=== PATIENT | female | born 1980 | race Two or more races ===

== ENCOUNTER 2020-05-02 07:07 | Inpatient (IN) ==
[2020-05-02] MEDS ORDERED: ONDANSETRON 4 MG/2 ML VIAL IV PRN ×3 (08:06→17:07)
[2020-05-02] MEDS ORDERED: OXYTOCIN/LR 20 UNIT/1,000 ML BAG IV SCH (08:30)
[2020-05-02] MEDS ORDERED: LACTATED RINGERS 1,000 ML IV SCH ×2 (08:30→17:30)
[2020-05-02 08:43] LABS: Basophils # 0.1 10*3/uL (0.0-0.2); Basophils % 0.5 % (0.0-0.8); Eosinophils # 0.1 10*3/uL (0.0-0.87); Eosinophils % 0.6 % (0.00-10.9); Hemoglobin 11.7 GM/DL (12.0-16.0); Immature Granulocytes % 0.4 %; Immature Granulocytes Absolute 0.04 #; Lymphocytes # 3.8 10*3/uL (1.4-4.0); Lymphocytes % 34.2 % (21.3-54.2); Mean Corpuscular HGB Conc 32.5 GM/DL (32-36); Mean Corpuscular Volume 83.5 FL (87-102); Mean Platelet Volume 11.5 FL (9.6-12.0); Monocytes % 5.6 % (1.7-12.7); Neutrophils % 58.7 % (38.7-73.9); Platelet Count 247 T/CUMM (130-400); Red Blood Count 4.31 MC/CUMM (3.8-5.5); Red Cell Distribution Width 15.8 % (9.3-17.3)
[2020-05-02 09:05] LABS: Alanine Aminotransferase 20 U/L (13-56); Albumin 2.8 G/DL (3.4-5.0); Alkaline Phosphatase 268 U/L (45-117); Aspartate Amino Transferase 24 U/L (0-37); Bilirubin,Total < 0.39 MG/DL (0.2-1.0); Blood Urea Nitrogen 10 MG/DL (7-18); Calcium 9.1 MG/DL (8.5-10.1); Estimated Glom Filtration Rate 111 ML/MIN; Glucose 73 MG/DL (74-106); Total Protein 7.9 G/DL (6.4-8.3)
[2020-05-02 10:47] LABS: HIV Antigen/Antibody Result Nonreactive (Nonreactive)
[2020-05-02] MEDS ORDERED: ePHEDrine 50 MG/ML VIAL IV PRN (12:00)
[2020-05-02] MEDS ORDERED: hydrOXYzine HCL 25 MG/1 ML VIAL IM PRN (12:00)
[2020-05-02] MEDS ORDERED: CITRIC ACID/SODIUM CITRATE 30 ML UDCUP PO ONE (12:00)
[2020-05-02] MEDS ORDERED: diphenhydrAMINE 50 MG/1 ML VIAL IV PRN ×2 (12:00)
[2020-05-02] MEDS ORDERED: FAMOTIDINE 20 MG/2 ML VIAL IV ONE (12:00)
[2020-05-02] MEDS ORDERED: fentaNYL 2 MCG/ROPIV 0.2% EPID 100 ML EPIDURAL SCH (12:00)
[2020-05-02] MEDS ORDERED: PROMETHAZINE 25 MG/1 ML VIAL IM PRN (12:00)
[2020-05-02] MEDS ORDERED: NALOXONE 0.4 MG/ML VIAL IV PRN (12:00)
[2020-05-02] MEDS ORDERED: miSOPROStoL 200 MCG TABLET ONE (12:13)
[2020-05-02] MEDS ORDERED: METHYLERGONOVINE 0.2 MG/1 ML AMP ONE (12:13)
[2020-05-02] MEDS ORDERED: CARBOPROST TROMETHAMINE 250 MCG/ML AMP IM ONE (12:13)
[2020-05-02] MEDS ORDERED: LIDOCAINE 1% 50 ML VIAL ONE (12:14)
[2020-05-02] MEDS ORDERED: MEPERIDINE 50 MG/1 ML VIAL ONE (12:14)
[2020-05-02] MEDS ORDERED: IBUPROFEN 800 MG TABLET PO ONE (13:24)
[2020-05-02 13:35] LABS: Cord Arterial Blood HCO3 22.3 MMOL/L
[2020-05-02 13:38] LABS: Cord Venous Blood HCO3 20.1 MMOL/L; Cord Venous Blood PCO2 37.8 MMHG; Cord Venous Blood PO2 25.6 MMHG
[2020-05-02] MEDS ORDERED: MAGNESIUM HYDROXIDE SUSP 30 ML UDCUP PO PRN (17:07)
[2020-05-02] MEDS ORDERED: IBUPROFEN 800 MG TABLET PO PRN (17:07)
[2020-05-02] MEDS ORDERED: ACETAMINOPHEN 325 MG TABLET PO PRN (17:07)
[2020-05-02] MEDS ORDERED: BISACODYL 10 MG SUPP RECTAL PRN (17:07)
[2020-05-02] MEDS ORDERED: POTASSIUM CHLORIDE 20 MEQ TABLET PO SCH (21:00)
[2020-05-02] MEDS: POTASSIUM CHLORIDE 20 MEQ TABLET PO SCH (21:03)
[2020-05-02] MEDS: DOCUSATE SODIUM 100 MG CAPSULE PO SCH (21:03)
[2020-05-03 06:56] LABS: Basophils % 0.3 % (0.0-0.8); Eosinophils # 0.1 10*3/uL (0.0-0.87); Eosinophils % 0.4 % (0.00-10.9); Hemoglobin 9.8 GM/DL (12.0-16.0); Immature Granulocytes % 0.4 %; Immature Granulocytes Absolute 0.05 #; Lymphocytes # 3.1 10*3/uL (1.4-4.0); Lymphocytes % 23.8 % (21.3-54.2); Mean Corpuscular HGB Conc 32.7 GM/DL (32-36); Mean Corpuscular Volume 82.2 FL (87-102); Mean Platelet Volume 11.1 FL (9.6-12.0); Monocytes % 6.1 % (1.7-12.7); Platelet Count 225 T/CUMM (130-400); Red Blood Count 3.65 MC/CUMM (3.8-5.5); Red Cell Distribution Width 15.6 % (9.3-17.3); White Blood Count 12.8 T/CUMM (4-12)
[2020-05-03 07:13] LABS: Hypochromasia 1+; Microcytosis 1+; Platelet Estimate Adequate
[2020-05-03] MEDS: DOCUSATE SODIUM 100 MG CAPSULE PO SCH ×2 (08:55→20:39)
[2020-05-03] MEDS: MULTIVITAMIN (PRENATAL) TABLET PO SCH (08:55)
[2020-05-03] MEDS: POTASSIUM CHLORIDE 20 MEQ TABLET PO SCH ×2 (09:30→20:38)
[2020-05-04 08:36] VITALS: BP 96/52
[2020-05-04] MEDS: MULTIVITAMIN (PRENATAL) TABLET PO SCH (08:54)
[2020-05-04] MEDS: DOCUSATE SODIUM 100 MG CAPSULE PO SCH (08:54)
[2020-05-04] MEDS: POTASSIUM CHLORIDE 20 MEQ TABLET PO SCH (08:54)
== END 2020-05-04 11:30 | disposition home or self-care (01) | DRG 807 ==
LOC: N.LDOUT 07:07 → N.LD 08:06 → N.OB 14:23
PROVIDERS: ADMIT Obstetrics & Gynecology; ATTEND Nurse Practitioner